=== PATIENT | male | born 1940 | race Caucasian/White ===

== ENCOUNTER 2016-10-17 06:42 | Emergency (ER) | payer MEDICARE, OTHER ==
[~2016-10-17] VITALS: Ht 182.9 cm; Wt 100.0 kg
[2016-10-17 06:49] VITALS: BP 161/70; PULSE 61; RESP 17; O2SAT 98
--- NOTE | 2016-10-17 07:03 | ED.REPORT ---
HPI-General Illness Date of Service Oct 17, 2016 ED Provider: Mark Wesley MD The pt is a 76 y/o male w/ a hx of PSVT, and HTN presenting to the ED due to a low heart rate. He describes his pulse oximeter showing a reading a HR of 32. He reports usually having a HR in 20s-30s when he takes his Metoprolol and Hydrochlorothiazide medications together. The pt took his medications on Tuesday (2 days ago) but did not take any yesterday or this morning. The pt denies CP, SOB, fatigue, or lightheadedness or any new symptoms whatsoever. The patient says that his only concern today was the heart rate reading on his pulse oximetry monitor. The pt also describes having episodes of tachycardia occasionally that stop when he lays down. Nursing Notes Stated Complaint: LOW HEART RATE Chief Complaint: Low heart rate Nursing Notes Reviewed: Yes Allergies: Coded Allergies: No Known Allergies (Unverified , 10/17/16) Scheduled Lisinopril (Lisinopril) 20 Mg Tablet 20 MG PO DAILY General Time Seen by MD: 07:03 Chief Complaint Other (Low heart rate ) Hx Obtained From: Patient Arrived By: Walk-in Sudden in Onset?: Yes Symptom Duration: Intermittent Recent Healthcare: No recent hospitalization, Recent doctor visit Similar Sx Previous: Yes Past Medical History Past Medical History PSVT HTN Past Surgical History None reported Review of Systems Full Review of Systems Constitutional: Denies: Fatigue Respiratory: Denies: Shortness of breath Cardiovascular: Denies: Chest pain Neurologic: Denies: Lightheaded Complete sys rev & neg: except as marked. Physical Exam Vital Signs Vital Signs Date Time Temp Pulse Resp B/P Pulse Ox O2 Delivery O2 Flow Rate FiO2 10/17/16 06:49 36.3 61 17 161/70 98 Room Air Initial VS: Reviewed General/Constitutional: Well-developed, Well-nourished Head / Eyes: Atraumatic, Normocephalic, PERRL ENT: Mucous membranes moist, Conjunctiva normal, No scleral icterus Neck: Supple, Non-tender, Full range of motion Respiratory: Breath sounds normal, Clear to auscultation, No respiratory distress Extremities: Vascular intact, Neuro intact, No swelling, No tenderness Skin: Warm, Dry, No cyanosis Neurologic: Alert, Oriented, Nonfocal Psychiatric: Mood/affect normal, Behavior normal, Normal thought content Cardiovascular: Heart sounds NL Regularly irregular heartbeat. I can only palpate a rate of 30 at the radial artery but I can auscultate a rate of 60-70 with my stethoscope which corresponds to the rhythm on the vault keeper. Interpretation & Diagnostics ECG Interpretation ECG Interpretation: Rate 72 NSR Ventricular bigeminy Time: 07:15 Interpreted by: ED physician Re-Eval/Medical Decision Source of Hx: Old records Time of Eval: 07:36 Re-Evaluation/Progress Note: Pt rechecked. Informed pt of plan for treatment. Pt understands and agrees with plan for treatment. F/U instructions and RTER warnings given. All questions addressed. Counseled Regarding: Diagnosis, Lab results, Need for follow-up, When/why to return to ED Discharge & Departure Primary Impression: Ventricular bigeminy Additional Impression: Hypertension Hypertension type: essential hypertension Qualified Code: I10 - Essential ( primary) hypertension Disposition: Home Discharge Condition All VS Reviewed: Yes Condition: Stable Patient Instructions: Chronic Hypertension (ED) Additional Instructions: Your EKG shows a rhythm known as ventricular bigeminy. This is not necessarily dangerous unless you have symptoms, such as intense lightheadedness or fainting or chest pain or shortness of breath. No further intervention is immediately required. Your blood pressure is not adequately managed. I recommend lisinopril 20 mg daily in conjunction with hydrochlorothiazide (HCTZ) 25 mg daily. Follow-up in the coming days with Dr. Bonner or Ms. Hernandez to discuss ongoing management for your hypertension. Referrals: Ankur Bonner MD (PCP) Scribe Attestation Portions of this note were transcribed by Odilon Gonzalez. I, Dr. Flores personally performed the history, physical exam and medical decision-making; I reviewed and confirmed the accuracy of the information in the transcribed note. copies to: Ankur Bonner MD, Kirk H MD Oct 17, 2016 07:03 Odilon Gonzalez Oct 17, 2016 07:27
[2016-10-17] MEDS ORDERED: LISI-567 PO ×2 (07:33→07:46)
--- NOTE | 2016-10-17 08:31 | DRSVH ---
PROCEDURE: X-RAY CHEST ONE VIEW, PORTABLE ([id number]) INDICATIONS: 76 year-old male with bradycardia. TECHNIQUE: One view of the chest was acquired. COMPARISON: None. FINDINGS: Surgical changes and devices: None. Lungs and pleura: No pleural effusions or pneumothorax. Lungs are clear. Mediastinum: Mediastinal contours appear normal. Heart size is normal. There is aortic atheroscler osis. Bones and chest wall: No suspicious bony lesions. Overlying soft tissues appear unremarkable. IMPRESSION: No acute cardiopulmonary disease. Dictated by: Dereje Montaño M.D. on 10/17/2016 at 8:30 Approved by: Dereje Montaño M.D. on 10/17/2016 at 8:30
== END 2016-10-17 07:45 | disposition home or self-care (01) ==
LOC: SED 06:42
DX: R00.8 Other abnormalities of heart beat (principal); I10 Essential (primary) hypertension